=== PATIENT | female | born 1965 | race Caucasian/White ===

== ENCOUNTER 2024-07-06 07:22 | Outpatient (OUT) | payer BC, SELFPAY ==
--- NOTE | 2024-07-06 | MR_ITS ---
The [address] [address] Patient Name: JAYDON LUDWIG MRN: [id number] date: 1965 Sex: F Assigned Patient Location: MRI Current Patient Location: MRI Accession/Order Number: [id number] Exam Date: 07/06/2024 07:45 Report Date: 07/06/2024 08:58 At the request of: KEMI KERN Procedure: MR head/brain wo con MR head/brain wo con, 07/06/2024 7:45 AM EDT INDICATION: Migraine; G43.909 COMPARISON: Prior CT of the head dated 03/07/2022 TECHNIQUE: Multiplanar, multisequential MRI images of brain were obtained without injection of contrast. FINDINGS: The cerebral sulci as well as ventricular system are appropriate for age. There is no restricted diffusion. Hyperintensities on T2 and FLAIR images in the villaseñor radiata and centrum semiovale with sparing of U fibers are nonspecific, statistically most likely consistent with mild microvascular ischemic changes or migraine or combination of both. Right frontal focus of T12 FLAIR hyperintensity might be due to prior ischemic event. There is no intracranial mass, mass effect, midline shift, intra or extra-axial fluid collection or large hemorrhage. Normal flow-void in the intracranial vessels is noted. The visualized portions of orbits, mastoid air cells as well as paranasal sinuses are unremarkable. MR/MR head/brain wo con IMPRESSION: No acute intracranial process is noted. Nonspecific white matter changes suggesting of combination of microvascular ischemic changes and migraine in appropriate clinical setting. Electronically authenticated by: CAROLEE GALLO Date: 07/06/2024 08:58
== END 2024-07-06 07:23 | disposition home or self-care (01) ==
LOC: MRI 07:26
PROVIDERS: PCP Family Medicine; Visit Provider Family Medicine
DX: G43.909 Migraine, unspecified, not intractable, without status migrainosus (principal)
CPT/HCPCS: 70551